=== PATIENT | female | born 1950 | race Caucasian/White ===

== ENCOUNTER → 2016-06-22 | Outpatient (CLI) | payer OTHER | LOC: MMPC 10:00 | PROVIDERS: ATTEND Physician Assistant | DX: M47.26 Other spondylosis with radiculopathy, lumbar region (principal); M54.6 Pain in thoracic spine | CPT/HCPCS: 99214 ==

== ENCOUNTER → 2016-06-24 | Outpatient (CLI) | payer OTHER ==
--- NOTE | 2016-06-24 14:49 | DI ---
History: Trauma. 2 view. Prior study: None. Findings: Surgical clips right upper quadrant of the abdomen No evidence of thoracic vertebral body collapse. AP view shows very mild curvature of the dorsolumbar axis convex left which may be postural or associ ated with spasm. Impression: Possible curvature of the spine associated with spasm. No fracture
--- NOTE | 2016-06-24 14:52 | DI ---
History: Trauma, back pain. Procedure: 4 view study. Flexion and extension acquired in lateral projection. Findings: As before, mild curvature of the thoracolumbar axis convex to the left. Vascular calcification abdominal aorta without aneurysmal dilatation. Surgical clips right upper quad rant of the abdomen. Flexion and extension views show no abnormal excursion. Impression: Previous abdominal surgery Vascular calcifications Degenerative changes L5-S1. Curvature of the spine may be associated with spasm. No subluxation with flexion or extension of the lumbar axis
== END ==
LOC: RAD 12:44
PROVIDERS: ATTEND Physician Assistant
DX: M47.26 Other spondylosis with radiculopathy, lumbar region (principal); M54.6 Pain in thoracic spine
CPT/HCPCS: 72070; 72110

== ENCOUNTER → 2016-07-04 | Outpatient (CLI) | payer OTHER | LOC: MMPC 10:00 | PROVIDERS: ATTEND Neurological Surgery | DX: M54.5 Low back pain (principal); M54.6 Pain in thoracic spine; R29.2 Abnormal reflex | CPT/HCPCS: 99214; G0463 ==

== ENCOUNTER → 2016-07-12 | Outpatient (CLI) | payer OTHER ==
--- NOTE | 2016-07-12 14:14 | DI ---
MRI CERVICAL SPINE SCAN, 07/12/2016 11:00 AM: Clinical History: Cervical cord compression with myelopathy. Previous Exam: 08/15/2007. Sequences: Sagittal T1and T2 weighted. Axial T2 PLUS and FE 3D DUAL. Coronal T1 scans through the upp er cervical spine. The vertebral bodies are of normal height and size. There is mild C5-6 disc space narrowing. The nicolle ining disc spaces are of normal height, and all disc spaces show desiccation change. The cerebellar t onsils are in normal position. The cervical cord has a normal caliber throughout. On the sagittal STI R sequences, there is an isolated focus of hyperintensity at the T1-2 level just to the right of midl ine. This is also noted on the axial FE 3-D dual sequence. We shall evaluate this area further at the time of the MRI scan of the thoracic spine that is scheduled for 07/13/2016. C2-3 through C5-6 disc spaces are normal. C6-7 has a mild central disc bulge without herniation and w ithout canal or neural foraminal stenosis. C7-T1 through T2-3 disc spaces are normal. T3-4 has a very mild bulging but not herniated disc without canal or neural foraminal stenosis.T4-5 and T5-6 are nor mal. Readin. There is a focal punctate hyperintensity in the right side of the thoracic cord at T1-2. This is seen only on the FLAIR and the axial FE 3-D dual sequences. This area will be evaluated tomorrow with scans of the thoracic spine. 2. There are bulging but not herniated discs at C6-7 and T3-4. 3. The disc spaces from C2-3 through C5-6, C7-T1 through T2-3, and T4-5 and T5-6 are normal.
== END ==
LOC: MRI 10:52
PROVIDERS: ATTEND Neurological Surgery
DX: G95.20 Unspecified cord compression (principal); M47.813 Spondylosis without myelopathy or radiculopathy, cervicothoracic region
CPT/HCPCS: 72141

== ENCOUNTER → 2016-07-13 | Outpatient (CLI) | payer OTHER ==
--- NOTE | 2016-07-13 23:27 | DI ---
MRI THORACIC SPINE SCAN, 07/13/2016 10:23 AM: Clinical History: Thoracic spondylosis. Previous Exam: 08/15/2007. Technique: Sagittal T1 and T2 weighted and STIR scans are supplemented with an axial angulated T1 and T2 weighted scans between the mid body of C7 through the T12-L1 disc space. A sagittal FLAIR sequenc e was performed along with an axial FLAIR sequence between T1 and T2. This was to evaluate the upper thoracic cord for the hyperintensity seen on the MRI cervical spine scan performed on 07/12/2016. There is mild midthoracic dextroscoliosis. The vertebral bodies are of normal height and size. There are Schmorl's nodes at T7-8 and T8-9. The disc spaces are of normal height. All thoracic disc spaces show desiccation change. The thoracic cord and the conus medullaris are normal. There is no abnormali ty in the thoracic cord at the level of T1-2 as was suspected on the MRI cervical spine scan performe d the day before. There is a minimally bulging but not herniated disc at T3-4 without canal or neural foraminal stenosi s. The remaining thoracic disc spaces are normal. There are no other extradural lesions. There are no intradural extramedullary or intramedullary lesions. Readin. The thoracic cord is normal. There is no hyperintense lesion in the right side of the thoracic co rd at the level of T1-2 corresponding to the hyperintensity noted in the cord on the MRI cervical spi ne scan performed on 07/12/2016. 2. There is a bulging but not herniated disc without canal or neural foraminal stenosis at T3-4. The remaining thoracic disc spaces are normal.
--- NOTE | 2016-07-14 12:18 | DI ---
CT BONE DENSITOMETRY OF THE SPINE AND HIP, 07/13/2016 10:23 AM : Clinical History: Asymptomatic post menopausal patient. Screening. Previous Exam: None at this facility. 3D Quantitative CT (QCT) Bone Mineral Densitometry: The [place] scans are normal. Low dose scans are sampled through the midbodies of L1 and L2. Average bone mineral density (BMD) is 83.8 mg/mL corresponding to a volumetric T-score of -3.2 and Z-score of -0.3. The [employer]'s (ACR) volumetric QCT BMD conversion table categorizes this patient as having osteopenia of the lumbar spine. There is only a single right kidney with compensat ory hypertrophy. CT X-Ray Absorptiometry (CTXA) Bone Mineral Densitometry of the Left Hip: Total hip BMD: 590 mg/cm2 T-score: -2.9 Z-score: -1.5 Femoral neck BMD: 558 mg/cm2 T-score: -2.1 Z-score: 90.8 Note: T-scores of the spine and hip are discordant approximately 40% of the times. Changes in actual QCT or CTXA/DEXA measurements are more reliable in assessment of change in BMD status rather than liya nges in T-scores. READIN. The QCT lumbar spine BMD value by ACR's 3D volumetric to 2D areal conversion categorizes this pat ient as having osteopenia of the lumbar spine, but it is close to being categorized as osteoporosis. The QCT spine T-score is -3.2, indicating osteoporosis of the lumbar spine. 2. The CTXA total hip and femoral neck BMD T-scores are -2.9 and -2.1, respectively. The left total hip T-score indicates this patient has osteoporosis of the total hip.
== END ==
LOC: CT 10:17
PROVIDERS: ATTEND Neurological Surgery
DX: M85.80 Other specified disorders of bone density and structure, unspecified site (principal); Z13.820 Encounter for screening for osteoporosis; M47.814 Spondylosis without myelopathy or radiculopathy, thoracic region
CPT/HCPCS: 72146; 77078

== ENCOUNTER → 2016-07-13 | Outpatient (CLI) | payer OTHER ==
--- NOTE | 2016-07-13 15:49 | DI ---
LEFT BREAST ULTRASOUND, 07/13/2016 1:48 PM: Clinical History: Abnormal left screening mammogram revealed a focus of architectural distortion in t he central portion of the left breast. The diagnostic mammogram performed today with digital tomosynt hesis show no abnormality. Scans are performed by the technologist and myself through all four quadrants of the left breast with the high resolution linear array probe. Palpation by myself revealed no masses or areas of "thickeni ng" in the breasts. Scans reveal no solid or cystic mass. Specifically, no lesion is seen in the area of question. Follow Up: As long as this patient remains clinically asymptomatic, she may reenter a routine breast surveillance protocol consisting of monthly self breast exams if she so desires, and mammograms every 1-2 years. BIRADS Category: 1. Negative exam. Reading: Negative.
--- NOTE | 2016-07-14 08:42 | DI ---
LEFT DIAGNOSTIC MAMMOGRAMS, 07/13/2016 1:48 PM: Clinical History: Recall for abnormal screening mammogram. A focus of architectural distortion was se en in the left breast on the craniocaudal view in the lateral half of the breast near the central axi s. Prior Exam: 06/24/2016. Digital tomosynthesis scans of the left breast are obtained with the [facility] nit. The digital breast tomograms and C-View images are obtained in the same projections as in the sc reening exam. CAD review is also performed. Breast tissue density is rated as having scattered areas of fibroglandular breast tissue. There is no mass or focus of architectural distortion identified in the left breast. No abnormal calcifications are noted. Skin contour, nipple, and lower axillary region are normal. Follow Up: As long as this patient remains clinically asymptomatic, she may reenter a routine breast surveillance protocol consisting of monthly self breast exams if she so desires, and mammograms every 1-2 years. BIRADS Category: 1. Negative exam. Breast ultrasound is pending. Reading: Negative.
== END ==
LOC: MAMMO 13:43
PROVIDERS: ATTEND Nurse Practitioner Family
DX: R92.8 Other abnormal and inconclusive findings on diagnostic imaging of breast (principal); M85.80 Other specified disorders of bone density and structure, unspecified site; M47.814 Spondylosis without myelopathy or radiculopathy, thoracic region; Z13.820 Encounter for screening for osteoporosis
CPT/HCPCS: 76641; G0206; G0279; 72146; 77078

== ENCOUNTER → 2016-07-21 | Outpatient (CLI) | payer OTHER ==
[2016-07-21 10:32] LABS: BASOPHILS % (AUTO) 1.4 % (0-1); EOSINOPHILS % (AUTO) 7.6 % (0-8); HEMATOCRIT 40.5 % (37.0-47.0); HEMOGLOBIN 13.4 g/dL (12.0-16.0); IMM GRAN % (AUTO) 0.1 % (0-5); IMM GRAN# (AUTO) 0.01 10*3/UL; LYMPHOCYTES # (AUTO) 1.96 10*3/uL; LYMPHOCYTES % (AUTO) 27.5 % (10-50); MEAN CORPUSCULAR HEMOGLOBIN 30.5 PG (27-31); MEAN CORPUSCULAR HGB CONC 33.1 g/dL (33-37); MEAN PLATELET VOLUME 9.9 FL (7.4-12.2); MONOCYTES # (AUTO) 0.45 10*3/UL (0.3-0.8); MONOCYTES % (AUTO) 6.3 % (5-15); NEUTROPHILS # (AUTO) 4.07 10*3/UL; NEUTROPHILS % (AUTO) 57.1 % (50-80); RDW COEFFICIENT OF VARIATION 13.4 % (11.5-14.5); WHITE BLOOD COUNT 7.13 10^3/uL (4.8-10.8)
[2016-07-21 10:38] LABS: PLATELET MORPHOLOGY COMMENT NORMAL MORPHOLOGY (NORM)
[2016-07-21 10:53] LABS: CALCIUM 9.9 mg/dL (8.7-10.7); POTASSIUM 4.5 meq/L (3.8-5.2); TOTAL PROTEIN 6.6 g/dL (6.1-8.0)
== END ==
LOC: MOB LAB 09:26
PROVIDERS: ATTEND Nurse Practitioner Family
DX: I10 Essential (primary) hypertension (principal); E78.5 Hyperlipidemia, unspecified; R63.4 Abnormal weight loss
CPT/HCPCS: 36415; 80053; 80061; 84443; 85025

== ENCOUNTER → 2016-07-22 | Outpatient (CLI) | payer OTHER | LOC: MOB LAB 09:16 | PROVIDERS: ATTEND Neurological Surgery | DX: M81.0 Age-related osteoporosis without current pathological fracture (principal); M53.82 Other specified dorsopathies, cervical region | CPT/HCPCS: 36415; 82306; 82607; 99212 ==

== ENCOUNTER 2017-04-11 14:22 | Inpatient (IN) ==
[2017-04-11] MEDS ORDERED: Sodium Chloride 0.9% 1,000 ML PRIMARY IV ONE (14:44)
[2017-04-11] MEDS ORDERED: MORPHINE SULFATE 4 MG/1 ML IVP ONE (14:44)
[2017-04-11] MEDS ORDERED: ONDANSETRON 4 MG/2 ML VIAL IVP ONE (14:44)
--- NOTE | 2017-04-11 14:49 | PDOC ---
GI Bleed/Rectal Complaint HPI - General Chief Complaint: GI Bleed / Rectal Pain Stated Complaint: black tar stools, n/v, dizziness, b/l abd pain Date Seen by Provider: 04/11/17 Time Seen by Provider: 14:45 Source: POSITIVE: Patient Exam Limitations: POSITIVE: No limitations Nurse's Notes Reviewed & Considered: Yes - History of Present Illness Initial Comments: A very pleasant 66-year-old female complaining of rectal bleeding. Patient has been passing dark tarry stools and now has developed pelvic pain, nausea but no vomiting, no diarrhea, no headache, no sore throat, no chest pain or shortness of breath, no hematuria or dysuria. Patient states she has lost approximately 80 pounds in 17 years with out trying to lose weight. She has been extensively worked up with colonoscopies etc. to evaluate her abdominal discomfort and weight loss. No diagnosis has been obtained. Present symptoms began approximately a week ago with nausea, pelvic pressure, and black tarry stools. Body Location Affected: REPORTS: Abdomen Timing: REPORTS: Constant Duration: >1 week Severity: Moderate Quality: REPORTS: Cramping, "Pain", Pressure Context: REPORTS: None Associated Symptoms: REPORTS: Black Stools, Tarry Stools, Suprapubic (Pain described as pressure and tenderness to palpation) Recent Care Received: REPORTS: Denies Any Prior Injuries Related to Current Complaint?: No - Patient Home Medications Home Medications: Home Medications Mometasone/Formoterol [Dulera 200 Mcg/5 Mcg Inhaler] 2 puff INH BID #1 inhaler 02/09/15 Triamcinolone Acetonide 80 gm TOPICAL TID #1 tube 04/27/16 Losartan/Hydrochlorothiazide [Losartan-Hctz 100-25 Mg Tab] 1 tab PO DAILY #90 tab 07/21/16 Rosuvastatin Calcium [Crestor] 10 mg PO QD #90 tab 07/21/16 - Patient Allergies Allergies/Adverse Reactions: Allergies 3 Allergy/AdvReac Type Severity Reaction Status Date / Time IVP DYE Allergy Intermediate SWELLING Uncoded 04/12/17 05:25 Past Medical History - heen HEENT History: Other (please comment) Additional HEENT History: RIGHT SUBMANDIBULAR GLAND REMOVAL 08/10/2012 Cardiovascular History: Hypertension Respiratory History: Denies History Gastrointestinal History: Gallbladder Disease, Other (please comment) Additional Gastrointestinal History: APPENDECTOMY AND TONSILLECTOMY CHILDHOOD YEARS. LAPCHOLE 2009. Genitourinary History: Other (please comment) Additional Genitourinary History: LEFT NEPHRECTOMY 30-40 YEARS AGO Endocrine History: Denies History Musculoskeletal History: Denies History, Other (please comment) Prosthesis or Implant: No Additional Musculoskeletal History: L5 LAMINECTOMY 20 + YEARS AGO / L SHOULDER SURGERY / RIGHT KNEE SCOPE PATIENT UNABLE TO RECALL YEARS Neurological History: Denies History Blood Disorders: Denies History Psychiatric History: Denies History History of Sexually Transmitted Diseases: No Female Reproductive History: Denies History Obstetrical History: Denies History Cancer History: Denies History In Past Year Been Physically Harmed or Verbally Threatened: No History of MDRO: No History of Other Communicable Diseases: No Tobacco Use: Never Smoker Alcohol Use: None In the Past 12 Months, Have Used or Abuse Any Substance: None Previous Surgical History: Yes Type / Date of Surgery: RIGHT NECK SURGERY, NEPHRECTOMY, HYSTERECTOMY, TONSILLECTOMY, APPENDECTOMY, CHOLECYSTECTOMY, LEFT KNEE SCOPE, LEFT MARSHA PROCEDURE. Anesthesia Reactions: No Malignant Hyperthermia: No Significant Family History: No pertinent family hx ROS - Limitations ROS Limitations: No Limitations Constitution: REPORTS: Denies Symptoms Cardiovascular: REPORTS: Denies Cardiac Symptoms Respiratory: REPORTS: Denies Resp Symptoms Neurological: REPORTS: Denies Neuro Symptoms Gastrointestinal: REPORTS: Abdominal Pain, Nausea, Black Stools Endocrine: REPORTS: Denies Symptoms Musculoskeletal: REPORTS: Denies MS Symptoms Genitourinary: REPORTS: Denies Symptoms Eyes: REPORTS: Denies Symptoms ENT: REPORTS: Denies Symptoms Skin: REPORTS: Denies Skin Symptoms Lympathic: REPORTS: Denies Lympathic Symptoms Immunologic: POSITIVE: Denies Symptoms Psychiatric: POSITIVE: Denies Psych Symptoms GI Bleed / Rectal Complaint PE - General Appearance General Appearance: POSITIVE: Alert, Cooperative, No Acute Distress, No Evidence of Trauma - HEENT HEENT: POSITIVE: Head Inspection Nml, Eyes Inspection Nml, Ears Inspection Nml, Nose Inspection Nml, Oral/Dental Inspect. Nml, Pharynx Inspect. Nml, PERRL, EOMI - Neck Neck: POSITIVE: Normal Inspection, No Apparent Injury - Respiratory Respiratory: POSITIVE: No Respiratory Distress, Breath Sounds Normal, Chest Non- Tender - Cardiovascular Cardiovascular: POSITIVE: Regular Rate and Rhythm, Heart Sounds Normal, Equal Pulses, Strong Pulses Peripheral Pulses: Radial (L): 3+, Dorsalis-pedis (R): 3+, Dorsalis-pedis (L): 3 + - Abdomen Abdomen: Soft: (All Quadrants), Normal Bowel Sounds: (All Quadrants), No Splenomegaly: (All Quadrants), No Hepatomegaly: (All Quadrants), No Guarding: ( All Quadrants), No Rebound: (All Quadrants), No Palpable Pulse: (All Quadrants) , No Palpabale Mass: (All Quadrants), No Distention: (All Quadrants), No Rigidity: (All Quadrants), Tenderness Noted: (RLQ), (LLQ) - Genital / Rectal Rectal: POSITIVE: Heme Positive Stool - Skin Skin: POSITIVE: Color Normal, No Rash, Warm, Dry - Extremities Extremity: Non-Tender: (All Extremities), Normal ROM: (All Extremities), Normal Inspection: (All Extremities), Pelvis Stable: (All Extremities) - Neurological / Psychological Neurological: POSITIVE: Oriented X3, Motor Normal, Sensation Normal GI Bleed / Rectal Progress - Results Reviewed by me Lab Results Reviewed by Me: Yes CBC and BMP: 04/11/17 15:12 04/12/17 06:12 - Patient's Progress Pain Medication Addressed: POSITIVE: Yes Status: POSITIVE: Improved MDM / ED Course: Patient was evaluated, an IV started, blood drawn and sent to the lab for studies. CT examination was ordered and then canceled because of elevated GFR and surgical removal of a kidney. Findings: CBC shows hemoglobin 11 hematocrit of 34 with normal white count. Guaiac of stool is positive. Assessment: GI bleeding. Plan: Admission, surgical consultation with planning for EGD and colonoscopy. - Consult Consult (If Yes, Name of Consulting MD & Time Called): Yes (Dr Morris: 1600 , Dr. Singer 1604) Consulting MD will see pt:: POSITIVE: [facility] [place] Admit Counseled: POSITIVE: Patient, Family, RE: Lab Results, RE: Radiology Results, RE : DX Patient Care Time - Estimated PCT Patient Care Time (In Minutes): 50 Vital Signs - VS Reviewed Vital Signs Reviewed: Yes Discharge Clinical Impression: GI bleeding Discharge Disposition: Admit to Inpatient Condition: Stable Date Decision to Admit to Inpatient: 04/11/17 Time Decision to Admit to Inpatient: 16:10
[2017-04-11 15:14] LABS: BASOPHILS # (AUTO) 0.06 10*3/UL; BASOPHILS % (AUTO) 0.8 % (0-1); EOSINOPHILS % (AUTO) 2.7 % (0-8); Hemoglobin [HGB] 11.2 g/dL (12.0-16.0); LYMPHOCYTES # (AUTO) 1.92 10*3/uL; MEAN CORPUSCULAR HEMOGLOBIN 29.9 PG (27-31); MEAN CORPUSCULAR HGB CONC 32.9 g/dL (33-37); MEAN CORPUSCULAR VOLUME 90.7 FL (81-99); MEAN PLATELET VOLUME 10.1 FL (7.4-12.2); MONOCYTES # (AUTO) 0.46 10*3/UL (0.3-0.8); MONOCYTES % (AUTO) 6.2 % (5-15); NEUTROPHILS # (AUTO) 4.81 10*3/UL; NEUTROPHILS % (AUTO) 64.3 % (50-80); RED BLOOD COUNT 3.75 10^6/uL (4.20-5.40)
[2017-04-11 15:15] LABS: PLATELET MORPHOLOGY COMMENT NORMAL MORPHOLOGY (NORM); RBC MORPHOLOGY COMMENT NORMAL MORPHOLOGY (NORM); WBC MORPHOLOGY COMMENT NORMAL MORPHOLOGY (NORM)
[2017-04-11 15:24] LABS: BUN/CREATININE RATIO 27.5 (6-20); MAGNESIUM 1.8 mg/dL (1.6-2.4); SERUM ALBUMIN 3.9 g/dL (3.5-4.8)
--- NOTE | 2017-04-11 16:43 | PDOC ---
HPI - History of Present Illness Date and Time of Service: 04/11/2017 6:12 PM Chief Complaint: Nausea, dizziness, lower abdominal pain or rectal bleeding going on for a few days History of Present Illness: This is a 66 years old the female with medical history significant for history of hypertension, hypercholesterolemia and chronic lower abdominal pain been going on since 1999 who came into the hospital because of nausea, dizziness and melena this is being going on for a few days. She said last Monday the stool were dark and on Monday they became darker and black, and 2 days ago she started to feel nausea, dizziness and lower abdominal pain. The pain is similar to what she is been having but it's more intense compared to before. Pain is described as more severe. She's been told in the past that her abdominal pain is due to stress so she didn't seek attention but since the pain got worse and she is having dizziness, which usually she does not have, and the black stool she came into the ER. In the ER she had a guaiac positive stool and the blood tests the done showed a hemoglobin of 11.2 and she was admitted. Currently her pain is down about 3 out of 10. No nausea. She is normally more constipated and usually take MiraLAX maybe twice a week. Last time she took it was yesterday. She is denying other symptoms. She infrequently uses aspirin for headache but otherwise doesn't use other NSAIDs. Past Medical History Medical History: 1. Hypertension. 2. Hypercholesterolemia. 3. History of chronic lower abdominal pain since 1999, had multiple tests and and nothing major was found and she was told that it's related to stress. 4. Colonic polyp the last time she had the scope was 2015 and she was told that she colonic polyp in need to repeat in 3 years. Surgical History: 1. Appendectomy. 2. Cholecystectomy. 3. Nephrectomy. 4. Tonsillectomy Pertinent Family History: Mother had leukemia. Past Social History: Does not smoke, does not drink no drugs. She used to work in administration of the hospital. She has 3 children. Tobacco Use: Never Smoker In the Past 12 Months, Have Used or Abuse Any of the Following Substance: None Alcohol Use: None Medication / Allergies Home Medications: Home Medications Medication Instructions Recorded Confirmed Type Mometasone/Formoterol [Dulera 200 2 puff INH BID #1 inhaler 02/09/15 04/11/17 History Mcg/5 Mcg Inhaler] Triamcinolone Acetonide 80 gm TOPICAL TID #1 tube 04/27/16 04/11/17 Rx Losartan/Hydrochlorothiazide 1 tab PO DAILY #90 tab 07/21/16 04/11/17 Rx [Losartan-Hctz 100-25 Mg Tab] Rosuvastatin Calcium [Crestor] 10 mg PO QD #90 tab 07/21/16 04/11/17 Rx Allergies/Adverse Reactions: Allergies 3 Allergy/AdvReac Type Severity Reaction Status Date / Time IVP DYE Allergy Intermediate SWELLING Uncoded 04/11/17 17:35 Review of Systems - Review of Systems All Systems: Reviewed & No Additional Complaints Except as Stated Exam - General General Appearance: No Acute Distress, Cooperative, Thin Additional General Exam Details: Appeared anxious - Head Head Exam: Normal Inspection - Eye Eye Exam: POSITIVE: Normal Appearance - ENT ENT Exam: POSITIVE: Normal Exam - Neck Neck Exam: Normal Inspection - Respiratory Respiratory Exam: POSITIVE: Clear to Auscultation - Bilaterally - Cardiovascular Cardiovascular Exam: POSITIVE: RRR - GI/Abdominal GI/Abdominal Exam: POSITIVE: Normal Bowel Sounds, Non Distended, Soft, Distended , No Organomegaly Additional GI/Abdominal Exam Details: Minimal tenderness in the lower abdomen - Rectal Rectal Exam: POSITIVE: Deferred - External Exam: POSITIVE: Deferred Exam: POSITIVE: Deferred - Extremities Extremities Exam: POSITIVE: Normal Inspection - Back Back Exam: POSITIVE: Normal Inspection - Neurological Neurological Exam: POSITIVE: Alert, Oriented x 3, CN II-XII Intact, No Facial Droop, Moves All Extremities Equally - Psychiatric Psychiatric Exam: POSITIVE: Anxious - Integumentary Integumentary Exam: POSITIVE: Normal Color Results - Labs CBC and BMP: 04/11/17 15:12 04/11/17 15:12 Assessment and Plan - Patient Problems (1) Melena Current Visit: Yes Status: Acute Comment: We'll give IV fluids, Protonix, I did speak with Dr. Aguilera and he' ll see her. Plan is for EGD in the morning. Will repeat her labs and order a type and screen. Code(s): K92.1 - Melena (2) Hypertension Current Visit: Yes Status: Acute Comment: We'll hold her blood pressure medication for tomorrow Code(s): I10 - Essential (primary) hypertension (3) Hypokalemia Current Visit: Yes Status: Acute Comment: Her potassium is borderline will add some potassium to the fluid. Code(s): E87.6 - Hypokalemia
[2017-04-11] MEDS ORDERED: NORMAL SALINE 10 ML SYRINGE FLUSH IVP PRN (17:56)
[2017-04-11] MEDS ORDERED: LIDOCAINE W/ SODIUM BICARB 0.5 ML SYR SUBD PRN (17:56)
[2017-04-11] MEDS ORDERED: ONDANSETRON 4 MG/2 ML VIAL IVP PRN (18:03)
--- NOTE | 2017-04-11 18:29 | CONSULT ---
Consult Note - Consult Consult Date: 04/11/17 Reason for Consult: PreOp Consulation : General Surgery Requesting Physician: Dr. Singer and Dr. Templeton Primary Care Provider: TORIBIO Saldana - History of Present Illness History of Present Illness: This 58-year-old female who states that 3 days ago she started having black tarry stools. She denies any nausea vomiting. She denies any diarrhea or constipation. She is having some left lower quadrant pain. She states that earlier the 10 now is about a 1 Past Medical History Medical History: 1. Hypertension. 2. Hypercholesterolemia. 3. History of chronic lower abdominal pain since 1999, had multiple tests and and nothing major was found and she was told that it's related to stress. 4. Colonic polyp the last time she had the scope was 2015 and she was told that she colonic polyp in need to repeat in 3 years. Surgical History: 1. Appendectomy. 2. Cholecystectomy. 3. Nephrectomy. 4. Tonsillectomy Pertinent Family History: Mother had leukemia. Past Social History: Does not smoke, does not drink no drugs. She used to work in [employer] [facility] the [facility] [facility] [employer]. She has 3 children. Tobacco Use: Never Smoker In the Past 12 Months, Have Used or Abuse Any of the Following Substance: None Alcohol Use: None Medication / Allergies Home Medications: Home Medications Medication Instructions Recorded Confirmed Type Mometasone/Formoterol [Dulera 200 2 puff INH BID #1 inhaler 02/09/15 04/11/17 History Mcg/5 Mcg Inhaler] Triamcinolone Acetonide 80 gm TOPICAL TID #1 tube 04/27/16 04/11/17 Rx Losartan/Hydrochlorothiazide 1 tab PO DAILY #90 tab 07/21/16 04/11/17 Rx [Losartan-Hctz 100-25 Mg Tab] Rosuvastatin Calcium [Crestor] 10 mg PO QD #90 tab 07/21/16 04/11/17 Rx Allergies/Adverse Reactions: Allergies 3 Allergy/AdvReac Type Severity Reaction Status Date / Time IVP DYE Allergy Intermediate SWELLING Uncoded 04/11/17 17:35 Results - Labs CBC and BMP: 04/11/17 15:12 04/11/17 15:12 Exam - Vitals Vital Signs: Vital Signs Temperature 98.1 F Temperature Source Oral Pulse Rate [Pulse Oximeter 84 Right] Pulse Rate 82 Respiratory Rate 16 Blood Pressure [Left Arm] 116/76 Blood Pressure 133/74 Pulse Ox 98 Oxygen Delivery Method Room Air Height 5 ft 4 in Weight 118 lb - General General Appearance: No Acute Distress, Cooperative - Eye Eye Exam: POSITIVE: PERRL, EOMI - Respiratory Respiratory Exam: POSITIVE: Clear to Auscultation - Bilaterally, Breathing Non Labored - Cardiovascular Cardiovascular Exam: POSITIVE: RRR - GI/Abdominal GI/Abdominal Exam: POSITIVE: Non Tender, Non Distended, Soft - Rectal Rectal Exam: POSITIVE: Deferred Assessment and Plan - Assessment / Plan Additional Assessment/Plan Details: I think the patient is probably having upper GI bleed. Would recommend the patient have an EGD. The risk and potential complications of the procedure were discussed with the patient.. They understood this. Also discussed alternatives diagnostic and treatment options. Will get the EGD set up at the first available date. Diagnosis upper GI bleed
[2017-04-11] MEDS: Pantoprazole Inj 40 MG in Normal Saline Flush 10 ML IVP SCH (18:39)
[2017-04-11] MEDS: MORPHINE SULFATE 2 MG/1 ML IVP PRN (21:01)
[2017-04-12] MEDS: Pantoprazole Inj 40 MG in Normal Saline Flush 10 ML IVP SCH ×2 (05:35→18:37)
[2017-04-12] MEDS ORDERED: Lactated Ringers 1,000 ML PRIMARY IV ONE ×2 (05:40→10:40)
[2017-04-12 06:45] LABS: BASOPHILS # (AUTO) 0.08 10*3/UL; BASOPHILS % (AUTO) 1.5 % (0-1); EOSINOPHILS # (AUTO) 0.68 10*3/UL; EOSINOPHILS % (AUTO) 13.1 % (0-8); Hematocrit [HCT] 30.5 % (37.0-47.0); Hemoglobin [HGB] 9.8 g/dL (12.0-16.0); MEAN CORPUSCULAR HEMOGLOBIN 30.2 PG (27-31); MEAN CORPUSCULAR HGB CONC 32.1 g/dL (33-37); MEAN CORPUSCULAR VOLUME 93.8 FL (81-99); MEAN PLATELET VOLUME 10.6 FL (7.4-12.2); MONOCYTES # (AUTO) 0.37 10*3/UL (0.3-0.8); MONOCYTES % (AUTO) 7.1 % (5-15); NEUTROPHILS # (AUTO) 1.78 10*3/UL; NEUTROPHILS % (AUTO) 34.2 % (50-80); RED BLOOD COUNT 3.25 10^6/uL (4.20-5.40)
[2017-04-12 07:20] LABS: PLATELET MORPHOLOGY COMMENT NORMAL MORPHOLOGY (NORM); RBC MORPHOLOGY COMMENT NORMAL MORPHOLOGY (NORM); WBC MORPHOLOGY COMMENT NORMAL MORPHOLOGY (NORM)
[2017-04-12] MEDS ORDERED: Sodium Chloride 0.9% 1,000 ML IV SCH (07:45)
[2017-04-12] MEDS ORDERED: Sodium Chloride 0.9% 1,000 ML ONE (10:33)
[2017-04-12] MEDS: MORPHINE SULFATE 2 MG/1 ML IVP PRN ×2 (10:40→18:39)
[2017-04-12] MEDS: Sodium Chloride 0.9% 1,000 ML IV SCH ×2 (10:51→18:32)
--- NOTE | 2017-04-12 10:56 | PDOC(PROG) ---
Date and Time of Service: 04/12/2017 10:55 AM Interval History: Subjective She said she did not have a bowel movement since she's been here. She is complaining from some headaches and cramps in the abdomen. Objective : Data - Labs CBC and BMP: 04/12/17 06:12 04/12/17 06:12 Objective : Exam - General General Appearance: No Acute Distress, Cooperative, Thin - Head Head Exam: Normal Inspection - Eye Eye Exam: Normal Appearance - ENT ENT Exam: Normal Exam - Neck Neck Exam: Normal Inspection - Respiratory Respiratory Exam: Clear to Auscultation - Bilaterally - Cardiovascular Cardiovascular Exam: RRR - GI/Abdominal GI/Abdominal Exam: Normal Bowel Sounds, Non Tender, Non Distended, Soft - Rectal Rectal Exam: Deferred - External Exam: Deferred - Extremities Extremities Exam: Normal Inspection - Back Back Exam: Normal Inspection - Neurological Neurological Exam: Alert, Oriented x 3, CN II-XII Intact - Psychiatric Psychiatric Exam: Flat Affect Assessment and Plan - Patient Problems (1) Melena Current Visit: Yes Status: Acute Comment: She is on Protonix continue we'll cut back on the fluid she will have an EGD today. Code(s): K92.1 - Melena (2) Hypertension Current Visit: Yes Status: Acute Comment: We are holding her blood pressure medication for now. Code(s): I10 - Essential (primary) hypertension (3) Hypokalemia Current Visit: Yes Status: Acute Comment: This is better. Code(s): E87.6 - Hypokalemia
[2017-04-12] MEDS ORDERED: Acetaminophen 1000mg Inj 1,000 MG/100 ML VIAL IV PRN (13:12)
[2017-04-12] MEDS ORDERED: Acetaminophen 1000mg Inj 1,000 MG/100 ML VIAL IV ONE (13:45)
[2017-04-12] MEDS ORDERED: fentaNYL Inj 100 MCG/2 ML VIAL ONE (16:12)
[2017-04-12] MEDS ORDERED: LIDOCAINE 2% VISCOUS(20 MG/1 ML) - 15 ML UD CUP PO ONE (16:12)
[2017-04-12] MEDS ORDERED: PROPOFOL 10 MG/1 ML (200 MG/20 ML) VIAL IV ONE (16:12)
--- NOTE | 2017-04-12 16:30 | CRNA.PROGR ---
Anesthesia Time - - Start date: 04/12/17 End date: 04/12/17 - Procedure/Recovery Time Anesthesia : Time In: 16:15 Anesthesia : Time Out: 16:24 Anesthesia : Total Time: 9 - Total Anesthesia Time Total Anesthesia Time (minutes): 9 - Other Weight: 54.613 kg Height: 5 ft 4 in Body Mass Index (BMI): 20.6 Physical Status: P2 Anesthesia Type: MAC
--- NOTE | 2017-04-12 16:30 | CRNA.PROGR ---
Post Anesthesia Phase II - Post Anesthesia Phase II Patient Stable and Discharged To: Phase II Care Assumed By Surgeon: Mathew Aguilera MD Temperature: 98.5 F Pulse Rate: 82 Respiratory Rate: 14 Blood Pressure: 90/60 Pulse Ox: 95 Total Curtis Score at Discharge: 10 Post Anesthesia Discharge Criteria Met: Yes
--- NOTE | 2017-04-12 16:42 | GEN.OPNOTE ---
EGD Operative Note Surgery Date: 04/12/17 Preoperative Diagnosis: Upper GI bleed Postoperative Diagnosis: Hemorrhagic gastritis Procedure: Esophagogastroduodenoscopy with biopsy Surgeon: Jamie Aguilera MD Anesthesia Provider: Stu Puri CRNA Anesthesia Type: MAC Indications: Patient is having black tarry stools Findings: Esophagus: Olympus video EGD scope inserted posterior pharynx. His get into the esophagus under direct visualization. Esophagus appeared to be normal GE Junction : 40 cm from incisors Fundus : Scope retroflexed on itself feeling normal fundus Body : Body was within normal limits Prepyloric : Prepyloric area had hemorrhagic gastritis. Biopsy taken for CLOtest Small Intestine : First second third portion of duodenum within normal limits A lubricated flexible upper endoscope was inserted passed through the esophagus and stomach into the duodenum. Endoscopy Procedures - Endoscopy Procedures Primary Endoscopy Procedure: 62751 : EGD w/Biospy
[2017-04-12] MEDS ORDERED: Sodium Chloride 0.9% 500 ML IV ONE ×2 (18:10→20:50)
[2017-04-12 18:24] LABS: BASOPHILS # (AUTO) 0.08 10*3/UL; BASOPHILS % (AUTO) 1.1 % (0-1); EOSINOPHILS # (AUTO) 0.81 10*3/UL; EOSINOPHILS % (AUTO) 11.3 % (0-8); Hematocrit [HCT] 30.7 % (37.0-47.0); Hemoglobin [HGB] 9.8 g/dL (12.0-16.0); LYMPHOCYTES # (AUTO) 3.13 10*3/uL; MEAN CORPUSCULAR HEMOGLOBIN 29.7 PG (27-31); MEAN CORPUSCULAR HGB CONC 31.9 g/dL (33-37); MEAN PLATELET VOLUME 10.1 FL (7.4-12.2); MONOCYTES # (AUTO) 0.49 10*3/UL (0.3-0.8); MONOCYTES % (AUTO) 6.8 % (5-15); NEUTROPHILS # (AUTO) 2.64 10*3/UL; NEUTROPHILS % (AUTO) 36.8 % (50-80)
[2017-04-12 18:25] LABS: PLATELET MORPHOLOGY COMMENT NORMAL MORPHOLOGY (NORM); RBC MORPHOLOGY COMMENT NORMAL MORPHOLOGY (NORM); WBC MORPHOLOGY COMMENT NORMAL MORPHOLOGY (NORM)
[2017-04-13] MEDS: Sodium Chloride 0.9% 1,000 ML IV SCH (00:31)
[2017-04-13] MEDS: ACETAMINOPHEN 325 MG TABLET PO PRN ×2 (00:31→08:03)
[2017-04-13] MEDS: Pantoprazole Inj 40 MG in Normal Saline Flush 10 ML IVP SCH (05:28)
[2017-04-13] MEDS ORDERED: traMADol 50 MG TABLET PO ONE (09:30)
[2017-04-13 11:33] VITALS: BP 122/34; RESP 17; TEMP 97.2; O2SAT 100
[2017-04-13] MEDS ORDERED: Influenza 17-18 Vaccine (6mo+) Quad 60mcg/0.5ml PF IM ONE (12:17)
--- NOTE | 2017-04-13 12:30 | DCSUMMARY ---
Hospitalization Summary Hospital Course: Final Discharge Diagnosis: Current Visit Problems Problem Status Onset Code Melena Acute K92.1 Hypertension Acute I10 Hypokalemia Acute E87.6 GI bleeding Acute K92.2 Diagnostic Data, Laboratory Data, and Procedures of Signifigance: Laboratory Results 04/11/17 04/11/17 04/11/17 Range/Units 15:12 15:12 15:12 WBC 7.47 (4.8-10.8) 10^3/uL RBC 3.75 L (4.20-5.40) 10^6/uL Hgb 11.2 L (12.0-16.0) g/dL Hct 34.0 L (37.0-47.0) % MCV 90.7 (81-99) FL MCH 29.9 (27-31) PG MCHC 32.9 L (33-37) g/dL RDW Std Deviation 43.0 (39-50) fL RDW Coeff of [place] 13.5 (11.5-14.5) % Plt Count 251 (140-350) 10*3/uL MPV 10.1 (7.4-12.2) FL Immature Gran % (Auto) 0.3 (0-5) % Neut % (Auto) 64.3 (50-80) % Lymph % (Auto) 25.7 (10-50) % [place] % (Auto) 6.2 (5-15) % Eos % (Auto) 2.7 (0-8) % Baso % (Auto) 0.8 (0-1) % Immature Gran # (Auto) 0.02 10*3/UL Neut # (Auto) 4.81 10*3/UL Lymph # (Auto) 1.92 10*3/uL [place] # (Auto) 0.46 (0.3-0.8) 10*3/UL Eos # (Auto) 0.20 10*3/UL Baso # (Auto) 0.06 10*3/UL WBC Morphology Comment Normal morphology (NORM) Plt Morphology Comment Normal morphology (NORM) RBC Morph Comment Normal morphology (NORM) PT 10.7 (9.7-11.4) secs INR 1.01 (0.00-5.90) N/A Sodium 144 (135-145) meq/L Potassium 3.5 L (3.8-5.2) meq/L Chloride 110 (98-112) meq/L Carbon Dioxide 21 L (23-33) meq/L Anion Gap 13 (5-20) BUN 33 H (7-22) mg/dL Creatinine 1.2 (0.50-1.20) mg/dL Estimated GFR 45 (>60 ml/min/1.73m(2)) BUN/Creatinine Ratio 27.50 H (6-20) Glucose 88 (78-110) mg/dL Calculated Osmolality 303.0 H (267-292) mOsm/kg Calcium 9.6 (8.7-10.7) mg/dL Magnesium 1.8 (1.6-2.4) mg/dL Total Bilirubin 0.4 (0.3-1.2) mg/dL AST 22 (8-39) IU/L ALT 28 (9-52) IU/L Alkaline Phosphatase 69 (38-126) IU/L Total Protein 6.4 (6.1-8.0) g/dL Albumin 3.9 (3.5-4.8) g/dL Globulin 2.5 (2.50-4.10) g/dL Albumin/Globulin Ratio 1.50 (1.3-2.0) mg/g Blood Type Antibody Screen 04/11/17 04/12/17 04/12/17 Range/Units 18:10 06:12 06:12 WBC 5.21 (4.8-10.8) 10^3/uL RBC 3.25 L (4.20-5.40) 10^6/uL Hgb 9.8 L (12.0-16.0) g/dL Hct 30.5 L (37.0-47.0) % MCV 93.8 (81-99) FL MCH 30.2 (27-31) PG MCHC 32.1 L (33-37) g/dL RDW Std Deviation 45.2 (39-50) fL RDW Coeff of [place] 13.6 (11.5-14.5) % Plt Count 200 (140-350) 10*3/uL MPV 10.6 (7.4-12.2) FL Immature Gran % (Auto) 0 (0-5) % Neut % (Auto) 34.2 L (50-80) % Lymph % (Auto) 44.1 (10-50) % [place] % (Auto) 7.1 (5-15) % Eos % (Auto) 13.1 H (0-8) % Baso % (Auto) 1.5 H (0-1) % Immature Gran # (Auto) 0 10*3/UL Neut # (Auto) 1.78 10*3/UL Lymph # (Auto) 2.30 10*3/uL [place] # (Auto) 0.37 (0.3-0.8) 10*3/UL Eos # (Auto) 0.68 10*3/UL Baso # (Auto) 0.08 10*3/UL WBC Morphology Comment Normal morphology (NORM) Plt Morphology Comment Normal morphology (NORM) RBC Morph Comment Normal morphology (NORM) PT (9.7-11.4) secs INR (0.00-5.90) N/A Sodium 143 (135-145) meq/L Potassium 5.0 D (3.8-5.2) meq/L Chloride 114 H (98-112) meq/L Carbon Dioxide 21 L (23-33) meq/L Anion Gap 8 (5-20) BUN 21 (7-22) mg/dL Creatinine 1.0 (0.50-1.20) mg/dL Estimated GFR 55 (>60 ml/min/1.73m(2)) BUN/Creatinine Ratio 21.00 H (6-20) Glucose 81 (78-110) mg/dL Calculated Osmolality 297.0 H (267-292) mOsm/kg Calcium 8.4 L (8.7-10.7) mg/dL Magnesium (1.6-2.4) mg/dL Total Bilirubin (0.3-1.2) mg/dL AST (8-39) IU/L ALT (9-52) IU/L Alkaline Phosphatase (38-126) IU/L Total Protein (6.1-8.0) g/dL Albumin (3.5-4.8) g/dL Globulin (2.50-4.10) g/dL Albumin/Globulin Ratio (1.3-2.0) mg/g Blood Type O POSITIVE Antibody Screen Negative 04/12/17 Range/Units 18:23 WBC 7.17 (4.8-10.8) 10^3/uL RBC 3.30 L (4.20-5.40) 10^6/uL Hgb 9.8 L (12.0-16.0) g/dL Hct 30.7 L (37.0-47.0) % MCV 93.0 (81-99) FL MCH 29.7 (27-31) PG MCHC 31.9 L (33-37) g/dL RDW Std Deviation 44.1 (39-50) fL RDW Coeff of [place] 13.5 (11.5-14.5) % Plt Count 225 (140-350) 10*3/uL MPV 10.1 (7.4-12.2) FL Immature Gran % (Auto) 0.3 (0-5) % Neut % (Auto) 36.8 L (50-80) % Lymph % (Auto) 43.7 (10-50) % [place] % (Auto) 6.8 (5-15) % Eos % (Auto) 11.3 H (0-8) % Baso % (Auto) 1.1 H (0-1) % Immature Gran # (Auto) 0.02 10*3/UL Neut # (Auto) 2.64 10*3/UL Lymph # (Auto) 3.13 10*3/uL [place] # (Auto) 0.49 (0.3-0.8) 10*3/UL Eos # (Auto) 0.81 10*3/UL Baso # (Auto) 0.08 10*3/UL WBC Morphology Comment Normal morphology (NORM) Plt Morphology Comment Normal morphology (NORM) RBC Morph Comment Normal morphology (NORM) PT (9.7-11.4) secs INR (0.00-5.90) N/A Sodium (135-145) meq/L Potassium (3.8-5.2) meq/L Chloride (98-112) meq/L Carbon Dioxide (23-33) meq/L Anion Gap (5-20) BUN (7-22) mg/dL Creatinine (0.50-1.20) mg/dL Estimated GFR (>60 ml/min/1.73m(2)) BUN/Creatinine Ratio (6-20) Glucose (78-110) mg/dL Calculated Osmolality (267-292) mOsm/kg Calcium (8.7-10.7) mg/dL Magnesium (1.6-2.4) mg/dL Total Bilirubin (0.3-1.2) mg/dL AST (8-39) IU/L ALT (9-52) IU/L Alkaline Phosphatase (38-126) IU/L Total Protein (6.1-8.0) g/dL Albumin (3.5-4.8) g/dL Globulin (2.50-4.10) g/dL Albumin/Globulin Ratio (1.3-2.0) mg/g Blood Type Antibody Screen History and Physical pertinent to Admission: Past Medical History Medical History: 1. Hypertension. 2. Hypercholesterolemia. 3. History of chronic lower abdominal pain since 1999, had multiple tests and and nothing major was found and she was told that it's related to stress. 4. Colonic polyp the last time she had the scope was 2015 and she was told that she colonic polyp in need to repeat in 3 years. Surgical History: 1. Appendectomy. 2. Cholecystectomy. 3. Nephrectomy. 4. Tonsillectomy Pertinent Family History: Mother had leukemia. Past Social History: Does not smoke, does not drink no drugs. 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 She has 3 children. Tobacco Use: Never Smoker In the Past 12 Months, Have Used or Abuse Any of the Following Substance: None Alcohol Use: None Course of Hospitalization: Is a very nice [age]-year-old female with past medical history significant for hypertension was admitted for melena with dark stools she did have a guaiac positive stool in the ER hemoglobin was 11.2 E she is using a lot of aspirin diagnosed with the hemorrhagic gastritis EGD was performed by Dr. matilde Bethea no active bleeding. Patient was treated with Protonix IV twice a day no further melena tolerating food I discussed the case with general surgery which patient will be discharged home on Protonix twice a day for 60 days. Follow-up with Dr. matilde Bethea in 1 week. Patient is doing great no nausea no vomiting no chest pain was back to her normal self drinking plenty of fluids she has been no clear liquids will advance diet. On the date of discharge, the patient was examined: Gen.: No acute distress, alert, nontoxic Heart: Regular rate and rhythm, no murmurs, clicks, gallops, or rubs Lungs: Clear to auscultation bilaterally, breathing is nonlabored Abdomen/GI: Normal tones on auscultation, soft, nontender, nondistended Musculoskeletal/extremities: No clubbing, cyanosis, or edema Vitals reviewed and are listed below Vital Signs (24 hrs) Temp Pulse Pulse Pulse Resp BP BP 04/13/17 11:32 97.2 F 72 17 122/34 04/13/17 07:00 97.8 F 87 18 125/53 04/13/17 04:41 98.1 F 93 16 103/50 04/13/17 00:32 99.2 F 108 H 16 116/55 04/13/17 00:31 99.2 F 04/12/17 20:24 98.0 F 81 20 88/53 04/12/17 19:00 79 81 20 04/12/17 18:09 120/59 04/12/17 17:00 98.0 F 83 20 78/29 04/12/17 16:30 98.5 F 82 14 90/60 Pulse Ox 04/13/17 11:32 100 04/13/17 07:00 97 04/13/17 04:41 95 04/13/17 00:32 97 04/13/17 00:31 04/12/17 20:24 96 04/12/17 19:00 04/12/17 18:09 04/12/17 17:00 98 04/12/17 16:30 95 Assessment and Plan: 1. As per discharge assessments above 2. Disposition: Home 3. Condition on discharge, stable and improved. 4. Diet: regular diet 5. Activities: resume normal activities 6. Follow-Up: 1. PCP 2. Dr. matilde Bethea 7. Medications at the Time of Discharge: Home Medications Medication Instructions Recorded Confirmed Type Mometasone/Formoterol [Dulera 200 2 puff INH BID #1 inhaler 02/09/15 04/11/17 History Mcg/5 Mcg Inhaler] Triamcinolone Acetonide 80 gm TOPICAL TID #1 tube 04/27/16 04/11/17 Rx Losartan/Hydrochlorothiazide 1 tab PO DAILY #90 tab 07/21/16 04/11/17 Rx [Losartan-Hctz 100-25 mg Tab] Rosuvastatin Calcium [Crestor] 10 mg PO QD #90 tab 07/21/16 04/11/17 Rx Pantoprazole Sodium [Protonix] 40 mg PO BID #120 tab 04/13/17 Rx 3 Generic Name Dose Route Start Last Admin Trade Name Freq PRN Reason Stop Dose Admin Acetaminophen 650 mg 04/12/17 20:24 04/13/17 08:03 Tylenol PO 650 mg Q6H PRN Administration HEADACHE Sodium Chloride 25 mls @ 200 mls/hr 04/11/17 17:56 Normal Saline 0.9% IV .Post Infusion PRN Flush Pantoprazole Sodium 40 mg/ 10 mls @ 5 mls/min 04/11/17 18:00 04/13/17 05:28 Sodium Chloride IVP 5 mls/min Q12H KWADWO Administration Sodium Chloride 1,000 mls @ 100 mls/hr 04/12/17 10:51 04/13/17 00:31 Normal Saline IV 150 mls/hr .Q10H KWADWO Administration Lidocaine HCl 0.5 ml 04/11/17 17:56 Lidocaine Buffered Inj SUBD ONCE PRN IV Starts Morphine Sulfate 2 mg 04/11/17 18:18 04/12/17 18:39 Morphine Inj IVP 2 mg Q3H PRN Administration Pain Ondansetron HCl 4 mg 04/11/17 18:03 04/11/17 21:05 Zofran Inj IVP 4 mg Q6H PRN Administration NAUSEA Sodium Chloride 5 - 20 ml 04/11/17 17:56 Saline Flush IVP BID PRN Flush 8. Time, care, counseling and coordination of care for this discharge is greater than 30 minutes. Exam - Vitals Vital Signs: Vital Signs Temperature 97.2 F Temperature Source Temporal Artery Scan Pulse Rate [Pulse Oximeter] 72 Pulse Rate [Pulse Oximeter 79 Right] Pulse Rate 82 Respiratory Rate 17 Blood Pressure [Right Arm] 122/34 Blood Pressure [Left Arm] 100/39 Blood Pressure 90/60 Pulse Ox 100 Oxygen Delivery Method Room Air Height 5 ft 4 in Weight 128 lb 3.2 oz
== END 2017-04-13 13:38 | disposition home or self-care (01) | DRG 379 ==
LOC: ER 14:22 → MED/SURG 16:40 → OPS 04-12 14:25 → MED/SURG 04-12 16:45
PROVIDERS: ADMIT Internal Medicine; ATTEND Internal Medicine